=== PATIENT | female | born 1955 | race Caucasian/White ===

== ENCOUNTER 2016-11-02 14:38 | Emergency (ER) | payer OTHER ==
[~2016-11-02] VITALS: Ht 160 cm; Wt 57.3 kg
[~2016-11-02 14:38] MED LIST: AMLO-512 PO; ATEN25 PO; BUPR150SR PO; CHOL200016 PO; CYAN500 PO; DIPH25 PO; GABA-529 PO; HYDR2 PO; KDUR10 PO; MULT-71 PO; ONDA4 PO; OXYC10IR PO; PROM25 PO; RANI150T7 PO; SENN-106 PO; TIZA4TAB4 PO
[2016-11-02] MEDS ORDERED: OxyCODONE HCL/ACETAMINOPHEN 10-325 MG TABLET PO ONE (15:30)
[2016-11-02 16:51] VITALS: BP 122/71
== END 2016-11-02 16:53 | disposition home or self-care (01) ==
LOC: EMS 14:41
DX: S83.92XA Sprain of unspecified site of left knee, initial encounter (principal); E11.9 Type 2 diabetes mellitus without complications; I10 Essential (primary) hypertension; K21.9 Gastro-esophageal reflux disease without esophagitis; G89.29 Other chronic pain; F11.90 Opioid use, unspecified, uncomplicated; F13.90 Sedative, hypnotic, or anxiolytic use, unspecified, uncomplicated; Z88.6 Allergy status to analgesic agent; Z88.1 Allergy status to other antibiotic agents; Z88.2 Allergy status to sulfonamides; Z88.8 Allergy status to other drugs, medicaments and biological substances; W10.8XXA Fall (on) (from) other stairs and steps, initial encounter; Y93.89 Activity, other specified; Y92.038 Other place in apartment as the place of occurrence of the external cause; Y99.8 Other external cause status
CPT/HCPCS: 99284

== ENCOUNTER 2017-03-22 16:05 | Emergency (ER) | payer OTHER ==
[~2017-03-22] VITALS: Ht 165.1 cm; Wt 50.0 kg
[~2017-03-22 16:05] MED LIST changes: -ATEN25 PO; +ATEN25TA PO; -MULT-71 PO; +MULT1TAB70 PO
[2017-03-22] MEDS ORDERED: KETOROLAC TROMETHAMINE 30 MG/ML VIAL IM ONE (16:45)
[2017-03-22] MEDS ORDERED: MORPHINE SULFATE 4 MG/ML SYRINGE IM ONE (16:45)
[2017-03-22 16:50] LABS: BASOPHILS % (AUTO) 0.1 % (0.0-2.0); EOSINOPHILS % (AUTO) 0.3 % (1.0-6.0); HEMOGLOBIN 14.4 g/dL (12.0-16.0); LYMPHOCYTES # (AUTO) 1.2 K/uL (1.0-4.8); LYMPHOCYTES % (AUTO) 16.6 % (22.0-44.0); MEAN CORPUSCULAR HEMOGLOBIN 31.7 pg (26.0-34.0); MEAN CORPUSCULAR HGB CONC 34.4 G/dL (31.0-37.0); MEAN CORPUSCULAR VOLUME 92 fL (80-100); MONOCYTES # (AUTO) 0.8 K/uL (0.1-1.0); MONOCYTES % (AUTO) 10.7 % (2.0-9.0); NEUTROPHILS # (AUTO) 5.3 K/uL (1.8-7.7); NEUTROPHILS % (AUTO) 72.3 % (40.0-70.0); PLATELET COUNT (AUTO) 162 K/uL (150-450); RED BLOOD CELL COUNT(AUTO) 4.55 MIL/uL (4.00-5.20); RED CELL DISTRIBUTION WIDTH 14.1 % (11.5-14.5); WHITE BLOOD COUNT (AUTO) 7.3 K/uL (4.5-11.0)
[2017-03-22 16:56] LABS: APPEARANCE,URINE CLEAR (CLEAR); GLUCOSE, URINE (UA) NEGATIVE (NEGATIVE); KETONES,URINE NEGATIVE (NEGATIVE); LEUKOCYTE ESTERASE ,URINE NEGATIVE (NEGATIVE); OCCULT BLOOD,URINE LARGE (NEGATIVE); PH,URINE 7.5 (5.0-8.0); PROTEIN,URINE NEGATIVE (NEGATIVE)
[2017-03-22 17:19] LABS: SQUAMOUS EPITHELIAL CELL,UR Few /LPF (None Seen)
[2017-03-22 17:20] LABS: RBC,URINE 51-100 /HPF (0-2)
[2017-03-22 17:21] LABS: WBC,URINE 0-2 /HPF (0-5)
[2017-03-22 17:23] VITALS: BP 164/104
== END 2017-03-22 18:07 | disposition home or self-care (01) ==
LOC: EMS 16:06
DX: I86.8 Varicose veins of other specified sites (principal); R16.0 Hepatomegaly, not elsewhere classified; E11.9 Type 2 diabetes mellitus without complications; I10 Essential (primary) hypertension; F11.90 Opioid use, unspecified, uncomplicated; F13.90 Sedative, hypnotic, or anxiolytic use, unspecified, uncomplicated; Z87.442 Personal history of urinary calculi; Z88.1 Allergy status to other antibiotic agents; Z88.2 Allergy status to sulfonamides; Z88.8 Allergy status to other drugs, medicaments and biological substances
CPT/HCPCS: 36415; 74176; 81001; 85025; 96372; 99285; J1885; J2270

== ENCOUNTER 2017-04-10 04:09 | Inpatient (IN) | payer OTHER ==
[~2017-04-10] VITALS: Ht 165.1 cm; Wt 58.5 kg
[2017-04-10] MEDS ORDERED: SODIUM CHLORIDE 0.9% 1,000 ML IV ONE (04:15)
[2017-04-10] MEDS ORDERED: ONDANSETRON HCL 4 MG/2 ML VIAL IVP ONE (04:15)
[2017-04-10] MEDS ORDERED: MORPHINE SULFATE 4 MG/ML SYRINGE IVP ONE ×2 (04:15→06:00)
[2017-04-10 04:22] LABS: GLUCOSE,POINT OF CARE 172 MG/DL (70-110)
[2017-04-10 04:52] LABS: BASOPHILS % (AUTO) 0.4 % (0.0-2.0); HEMATOCRIT 44.4 % (36-46); HEMOGLOBIN 15.2 g/dL (12.0-16.0); MEAN CORPUSCULAR HEMOGLOBIN 31.4 pg (26.0-34.0); MEAN CORPUSCULAR HGB CONC 34.3 G/dL (31.0-37.0); MEAN CORPUSCULAR VOLUME 92 fL (80-100); MONOCYTES # (AUTO) 0.6 K/uL (0.1-1.0); MONOCYTES % (AUTO) 8.7 % (2.0-9.0); NEUTROPHILS % (AUTO) 74.9 % (40.0-70.0); PLATELET COUNT (AUTO) 165 K/uL (150-450); RED BLOOD CELL COUNT(AUTO) 4.85 MIL/uL (4.00-5.20); RED CELL DISTRIBUTION WIDTH 14.6 % (11.5-14.5); WHITE BLOOD COUNT (AUTO) 6.6 K/uL (4.5-11.0)
[2017-04-10 04:57] LABS: ANION GAP 10 mmol/L (8-16); CALCIUM, TOTAL 8.3 mg/dL (8.8-10.5); CARBON DIOXIDE 29 mmol/L (22-29); CHLORIDE 100 mmol/L (98-107); CREATININE 0.76 mg/dL (0.60-1.30); GLOMERULAR FILTR. RATE CALC > 60 mL/min (>60); POTASSIUM 3.3 mmol/L (3.5-5.1); SODIUM SERUM 139 mmol/L (136-145); UREA NITROGEN, BLOOD 12 mg/dL (7-18)
[2017-04-10 05:03] LABS: ALANINE AMINOTRANSFERASE 79 U/L (12-78); ALBUMIN 3.5 g/dL (3.4-5.0); ASPARTATE AMINOTRANSFERASE 143 U/L (15-37); BILIRUBIN,TOTAL 1.1 mg/dL (0.1-1.0); TOTAL PROTEIN, SERUM 9.1 g/dL (6.4-8.2)
[2017-04-10 05:06] LABS: LACTIC ACID 1.9 mmol/L (0.4-2.0)
[2017-04-10] MEDS ORDERED: 0.9% SODIUM CHLORIDE 10 ML SYRINGE IVP PRN ×2 (05:30→10:30)
[2017-04-10] MEDS ORDERED: ACETAMINOPHEN 325 MG TABLET PO PRN (05:30)
[2017-04-10] MEDS ORDERED: ONDANSETRON HCL 4 MG/2 ML VIAL IVP PRN (05:30)
[2017-04-10 07:02] VITALS: BP 153/94
[2017-04-10 07:08] LABS: GLUCOSE COMMENT 1 Juice/Food/D50 Given; GLUCOSE,POINT OF CARE 113 MG/DL (70-110)
[2017-04-10] MEDS ORDERED: ONDANSETRON HCL 4 MG TABLET PO PRN (10:30)
[2017-04-10] MEDS ORDERED: DiphenhydrAMINE HCL 25 MG CAPSULE PO PRN (10:30)
[2017-04-10] MEDS ORDERED: SENNA/DOCUSATE SODIUM 187-50 MG TABLET PO PRN (10:30)
[2017-04-10] MEDS: MORPHINE SULFATE 2 MG/ML SYRINGE IVP PRN ×3 (10:50→20:36)
[2017-04-10 11:38] VITALS: BP 157/109
[2017-04-10] MEDS: POTASSIUM CHLORIDE 10 MEQ ER TABLET PO SCH ×2 (12:04→19:51)
[2017-04-10] MEDS: PROMETHAZINE HCL 25 MG TABLET PO SCH ×2 (12:05→19:51)
[2017-04-10] MEDS: ATENOLOL 50 MG TABLET PO SCH (12:05)
[2017-04-10] MEDS: CYANOCOBALAMIN 500 MCG TABLET PO SCH (12:05)
[2017-04-10] MEDS: AmLODIPine BESYLATE 10 MG TABLET PO SCH (12:05)
[2017-04-10] MEDS: BuPROPion HCL 150 MG SR TABLET PO SCH (12:05)
[2017-04-10] MEDS: CHOLECALCIFEROL (VIT D3) 2,000 UNITS TABLET PO SCH (12:05)
[2017-04-10] MEDS: MULTIVITAMINS, THERAPEUTIC TABLET PO SCH (12:05)
[2017-04-10] MEDS: TiZANidine HCL 4 MG TABLET PO SCH ×2 (12:06→19:51)
[2017-04-10] MEDS: RANITIDINE HCL 150 MG TABLET PO SCH ×2 (12:06→19:51)
[2017-04-10 15:29] VITALS: BP 91/46
[2017-04-10] MEDS: HYDROmorphone HCL 2 MG TABLET PO SCH (19:51)
[2017-04-10 20:05] VITALS: BP 99/65
[2017-04-10 23:34] VITALS: BP 85/55
[2017-04-11] VITALS (7 sets, daily range): BP systolic 94–118; BP diastolic 50–67
[2017-04-11] MEDS: MORPHINE SULFATE 2 MG/ML SYRINGE IVP PRN ×4 (03:21→17:22)
[2017-04-11 06:47] LABS: BASOPHILS # (AUTO) 0.02 K/uL (0.00-0.20); BASOPHILS % (AUTO) 0.6 % (0.0-2.0); EOSINOPHILS # (AUTO) 0.09 K/uL (0.00-0.70); EOSINOPHILS % (AUTO) 3.06 % (1.0-6.0); HEMATOCRIT 41.4 % (36-46); HEMOGLOBIN 13.9 g/dL (12.0-16.0); LYMPHOCYTES # (AUTO) 1.1 K/uL (1.0-4.8); LYMPHOCYTES % (AUTO) 35.1 % (22.0-44.0); MEAN CORPUSCULAR HEMOGLOBIN 31.7 pg (26.0-34.0); MEAN CORPUSCULAR HGB CONC 33.5 G/dL (31.0-37.0); MEAN CORPUSCULAR VOLUME 94 fL (80-100); MONOCYTES # (AUTO) 0.3 K/uL (0.1-1.0); MONOCYTES % (AUTO) 10.2 % (2.0-9.0); NEUTROPHILS # (AUTO) 1.5 K/uL (1.8-7.7); PLATELET COUNT (AUTO) 105 K/uL (150-450); RED BLOOD CELL COUNT(AUTO) 4.38 MIL/uL (4.00-5.20); RED CELL DISTRIBUTION WIDTH 14.4 % (11.5-14.5)
[2017-04-11 07:16] LABS: ALANINE AMINOTRANSFERASE 85 U/L (12-78); ANION GAP 5 mmol/L (8-16); ASPARTATE AMINOTRANSFERASE 170 U/L (15-37); CALCIUM, TOTAL 8.5 mg/dL (8.8-10.5); CARBON DIOXIDE 32 mmol/L (22-29); CHLORIDE 100 mmol/L (98-107); CREATININE 0.83 mg/dL (0.60-1.30); GLOMERULAR FILTR. RATE CALC > 60 mL/min (>60); POTASSIUM 4.2 mmol/L (3.5-5.1); SODIUM SERUM 137 mmol/L (136-145); TOTAL PROTEIN, SERUM 7.9 g/dL (6.4-8.2); UREA NITROGEN, BLOOD 23 mg/dL (7-18)
[2017-04-11 08:17] LABS: GLUCOSE COMMENT 1 Juice/Food/D50 Given; GLUCOSE,POINT OF CARE 121 MG/DL (70-110)
[2017-04-11 08:17] LABS: GLUCOSE COMMENT 1 Juice/Food/D50 Given; GLUCOSE,POINT OF CARE 87 MG/DL (70-110)
[2017-04-11] MEDS: MULTIVITAMINS, THERAPEUTIC TABLET PO SCH (08:36)
[2017-04-11] MEDS: PROMETHAZINE HCL 25 MG TABLET PO SCH ×2 (08:36→20:26)
[2017-04-11] MEDS: POTASSIUM CHLORIDE 10 MEQ ER TABLET PO SCH ×2 (08:36→20:24)
[2017-04-11] MEDS: CHOLECALCIFEROL (VIT D3) 2,000 UNITS TABLET PO SCH (08:36)
[2017-04-11] MEDS: ATENOLOL 50 MG TABLET PO SCH (08:36)
[2017-04-11] MEDS: CYANOCOBALAMIN 500 MCG TABLET PO SCH (08:36)
[2017-04-11] MEDS: BuPROPion HCL 150 MG SR TABLET PO SCH (08:36)
[2017-04-11] MEDS: RANITIDINE HCL 150 MG TABLET PO SCH ×2 (08:36→20:25)
[2017-04-11] MEDS: TiZANidine HCL 4 MG TABLET PO SCH ×2 (08:37→20:25)
[2017-04-11] MEDS: AmLODIPine BESYLATE 10 MG TABLET PO SCH (08:43)
[2017-04-11] MEDS: HYDROmorphone HCL 2 MG TABLET PO SCH ×2 (09:00→20:24)
[2017-04-11 15:12] LABS: GLUCOSE,POINT OF CARE 93 MG/DL (70-110)
[2017-04-11 18:13] LABS: GLUCOSE,POINT OF CARE 75 MG/DL (70-110)
[2017-04-11] MEDS ORDERED: MAGNESIUM SULFATE 3 GM in DEXTROSE 5%-WATER 100 ML IV ONE (18:15)
[2017-04-11] MEDS: DOCUSATE SODIUM 250 MG CAPSULE PO SCH (20:24)
[2017-04-11] MEDS: ZOLPIDEM TARTRATE 10 MG TABLET PO SCH (20:36)
[2017-04-12] VITALS (7 sets, daily range): BP systolic 93–131; BP diastolic 47–79
[2017-04-12] MEDS: MORPHINE SULFATE 2 MG/ML SYRINGE IVP PRN ×6 (00:42→23:12)
[2017-04-12 05:44] LABS: BASOPHILS % (AUTO) 0.5 % (0.0-2.0); EOSINOPHILS % (AUTO) 2.3 % (1.0-6.0); HEMATOCRIT 38.7 % (36-46); HEMOGLOBIN 13.3 g/dL (12.0-16.0); LYMPHOCYTES # (AUTO) 1.1 K/uL (1.0-4.8); LYMPHOCYTES % (AUTO) 28.7 % (22.0-44.0); MEAN CORPUSCULAR HEMOGLOBIN 31.8 pg (26.0-34.0); MEAN CORPUSCULAR HGB CONC 34.3 G/dL (31.0-37.0); MEAN CORPUSCULAR VOLUME 93 fL (80-100); MONOCYTES # (AUTO) 0.4 K/uL (0.1-1.0); MONOCYTES % (AUTO) 11.5 % (2.0-9.0); NEUTROPHILS # (AUTO) 2.1 K/uL (1.8-7.7); PLATELET COUNT (AUTO) 126 K/uL (150-450); RED BLOOD CELL COUNT(AUTO) 4.16 MIL/uL (4.00-5.20); RED CELL DISTRIBUTION WIDTH 14.2 % (11.5-14.5); WHITE BLOOD COUNT (AUTO) 3.7 K/uL (4.5-11.0)
[2017-04-12 06:07] LABS: ANION GAP 6 mmol/L (8-16); CALCIUM, TOTAL 8.5 mg/dL (8.8-10.5); CARBON DIOXIDE 28 mmol/L (22-29); CHLORIDE 103 mmol/L (98-107); CREATININE 0.87 mg/dL (0.60-1.30); GLOMERULAR FILTR. RATE CALC > 60 mL/min (>60); POTASSIUM 4.4 mmol/L (3.5-5.1); SODIUM SERUM 137 mmol/L (136-145); UREA NITROGEN, BLOOD 26 mg/dL (7-18)
[2017-04-12 07:47] LABS: RBC MORPHOLOGY COMMENT NORMAL RBC MORPH
[2017-04-12] MEDS: BuPROPion HCL 150 MG SR TABLET PO SCH (08:15)
[2017-04-12] MEDS: CYANOCOBALAMIN 500 MCG TABLET PO SCH (08:15)
[2017-04-12] MEDS: TiZANidine HCL 4 MG TABLET PO SCH ×2 (08:15→20:27)
[2017-04-12] MEDS: RANITIDINE HCL 150 MG TABLET PO SCH ×2 (08:15→20:28)
[2017-04-12] MEDS: CHOLECALCIFEROL (VIT D3) 2,000 UNITS TABLET PO SCH (08:15)
[2017-04-12] MEDS: PROMETHAZINE HCL 25 MG TABLET PO SCH ×2 (08:15→20:28)
[2017-04-12] MEDS: MULTIVITAMINS, THERAPEUTIC TABLET PO SCH (08:16)
[2017-04-12] MEDS: POTASSIUM CHLORIDE 10 MEQ ER TABLET PO SCH ×2 (08:16→20:28)
[2017-04-12] MEDS: AmLODIPine BESYLATE 10 MG TABLET PO SCH (08:16)
[2017-04-12] MEDS: HYDROmorphone HCL 2 MG TABLET PO SCH ×2 (08:16→20:28)
[2017-04-12] MEDS: ATENOLOL 50 MG TABLET PO SCH (08:17)
[2017-04-12] MEDS: DOCUSATE SODIUM 250 MG CAPSULE PO SCH ×2 (08:17→20:28)
[2017-04-12 13:42] LABS: GLUCOSE,POINT OF CARE 152 MG/DL (70-110)
[2017-04-12] MEDS: OxyCODONE HCL 10 MG IR TABLET PO PRN (17:44)
[2017-04-12] MEDS: ZOLPIDEM TARTRATE 10 MG TABLET PO SCH (20:28)
[2017-04-12 23:52] LABS: GLUCOSE,POINT OF CARE 140 MG/DL (70-110)
[2017-04-13 03:37] VITALS: BP 139/103
[2017-04-13] MEDS: MORPHINE SULFATE 2 MG/ML SYRINGE IVP PRN ×2 (03:56→10:02)
[2017-04-13 04:04] VITALS: BP 126/63
[2017-04-13 07:22] LABS: GLUCOSE,POINT OF CARE 78 MG/DL (70-110)
[2017-04-13 07:40] VITALS: BP 132/77
[2017-04-13] MEDS: DOCUSATE SODIUM 250 MG CAPSULE PO SCH ×2 (08:21→08:29)
[2017-04-13] MEDS: RANITIDINE HCL 150 MG TABLET PO SCH (08:21)
[2017-04-13] MEDS: MULTIVITAMINS, THERAPEUTIC TABLET PO SCH (08:21)
[2017-04-13] MEDS: TiZANidine HCL 4 MG TABLET PO SCH (08:21)
[2017-04-13] MEDS: POTASSIUM CHLORIDE 10 MEQ ER TABLET PO SCH (08:22)
[2017-04-13] MEDS: AmLODIPine BESYLATE 10 MG TABLET PO SCH ×2 (08:22→08:29)
[2017-04-13] MEDS: PROMETHAZINE HCL 25 MG TABLET PO SCH (08:22)
[2017-04-13] MEDS: BuPROPion HCL 150 MG SR TABLET PO SCH (08:22)
[2017-04-13] MEDS: HYDROmorphone HCL 2 MG TABLET PO SCH (08:23)
[2017-04-13] MEDS: CHOLECALCIFEROL (VIT D3) 2,000 UNITS TABLET PO SCH (08:23)
[2017-04-13] MEDS: ATENOLOL 50 MG TABLET PO SCH (08:23)
[2017-04-13] MEDS: CYANOCOBALAMIN 500 MCG TABLET PO SCH (08:23)
[2017-04-13] MEDS: OxyCODONE HCL 10 MG IR TABLET PO PRN ×2 (09:59→14:40)
[2017-04-13 11:01] VITALS: BP 108/73
[2017-04-13 12:02] LABS: GLUCOSE,POINT OF CARE 156 MG/DL (70-110)
== END 2017-04-13 15:35 | disposition home or self-care (01) | DRG 48 ==
LOC: EMS 04:10 → 6N 05:44
PROVIDERS: ADMIT Internal Medicine; ATTEND Family Medicine
DX: E11.43 Type 2 diabetes mellitus with diabetic autonomic (poly)neuropathy (principal); F11.20 Opioid dependence, uncomplicated; I10 Essential (primary) hypertension; K31.84 Gastroparesis; G89.4 Chronic pain syndrome; M54.9 Dorsalgia, unspecified; K21.9 Gastro-esophageal reflux disease without esophagitis; F13.90 Sedative, hypnotic, or anxiolytic use, unspecified, uncomplicated; M75.100 Unspecified rotator cuff tear or rupture of unspecified shoulder, not specified as traumatic; G47.00 Insomnia, unspecified; F41.9 Anxiety disorder, unspecified; K59.03 Drug induced constipation; T40.2X5A Adverse effect of other opioids, initial encounter; M19.90 Unspecified osteoarthritis, unspecified site; E87.6 Hypokalemia; E86.0 Dehydration; Z88.1 Allergy status to other antibiotic agents; Z87.442 Personal history of urinary calculi; Z90.49 Acquired absence of other specified parts of digestive tract; Z90.710 Acquired absence of both cervix and uterus; Z96.652 Presence of left artificial knee joint; Y92.89 Other specified places as the place of occurrence of the external cause; Y93.89 Activity, other specified; Y99.8 Other external cause status; Z88.2 Allergy status to sulfonamides; Z88.8 Allergy status to other drugs, medicaments and biological substances; Z79.899 Other long term (current) drug therapy
CPT/HCPCS: 82962; 83605; 83735; 93005; 96361; 96374; 96375; 96376; 99285; G0480; J2270; J2405; J3475; J7030; J7060; Q0162

== ENCOUNTER 2018-10-09 11:11 | Emergency (ER) | payer OTHER ==
[~2018-10-09] VITALS: Ht 157.5 cm; Wt 64.1 kg
[~2018-10-09 11:11] MED LIST changes: -AMLO-512 PO; -CHOL200016 PO; +CHOL200059 PO; -GABA-529 PO
[2018-10-09] MEDS ORDERED: MORPHINE SULFATE 2 MG/ML SYRINGE IVP ONE (11:30)
[2018-10-09 11:41] LABS: EOSINOPHILS % (AUTO) 2.4 % (1.0-6.0); HEMATOCRIT 36.1 % (36-46); HEMOGLOBIN 11.8 g/dL (12.0-16.0); LYMPHOCYTES # (AUTO) 1.4 K/uL (1.0-4.8); LYMPHOCYTES % (AUTO) 30.5 % (22.0-44.0); MEAN CORPUSCULAR HEMOGLOBIN 27.3 pg (26.0-34.0); MEAN CORPUSCULAR HGB CONC 32.7 G/dL (31.0-37.0); MEAN CORPUSCULAR VOLUME 84 fL (80-100); MONOCYTES # (AUTO) 0.6 K/uL (0.1-1.0); MONOCYTES % (AUTO) 13.9 % (2.0-9.0); NEUTROPHILS # (AUTO) 2.4 K/uL (1.8-7.7); NEUTROPHILS % (AUTO) 52.2 % (40.0-70.0); PLATELET COUNT (AUTO) 180 K/uL (150-450); RED BLOOD CELL COUNT(AUTO) 4.31 MIL/uL (4.00-5.20); RED CELL DISTRIBUTION WIDTH 17.7 % (11.5-14.5)
[2018-10-09 12:00] LABS: ANION GAP 8 mmol/L (8-16); CALCIUM, TOTAL 8.9 mg/dL (8.8-10.5); CARBON DIOXIDE 29 mmol/L (22-29); CHLORIDE 105 mmol/L (98-107); CREATININE 0.91 mg/dL (0.60-1.30); GLOMERULAR FILTR. RATE CALC > 60 mL/min (>60); GLUCOSE,RANDOM 60 mg/dL (70-110); POTASSIUM 4.4 mmol/L (3.5-5.1); SODIUM SERUM 142 mmol/L (136-145); UREA NITROGEN, BLOOD 18 mg/dL (7-18)
[2018-10-09 12:05] LABS: ALANINE AMINOTRANSFERASE 40 U/L (12-78); ALBUMIN 3.4 g/dL (3.4-5.0); ALKALINE PHOSPHATASE 134 U/L (46-116); ASPARTATE AMINOTRANSFERASE 50 U/L (15-37); BILIRUBIN,TOTAL 0.4 mg/dL (0.1-1.0); TOTAL PROTEIN, SERUM 8.5 g/dL (6.4-8.2)
[2018-10-09] MEDS ORDERED: PARO20TA24 PO (12:09)
[2018-10-09] MEDS ORDERED: RANI150T7 PO (12:09)
[2018-10-09] MEDS ORDERED: QUET100T PO (12:09)
[2018-10-09] MEDS ORDERED: PRAM0.258 PO (12:09)
[2018-10-09] MEDS ORDERED: AMLO2.5T4 PO (12:09)
[2018-10-09] MEDS ORDERED: DOXE3TAB3 PO (12:09)
[2018-10-09] MEDS ORDERED: MORPHINE SULFATE 4 MG/ML SYRINGE IVP ONE (14:15)
[2018-10-09 15:20] VITALS: BP 137/64
== END 2018-10-09 15:27 | disposition home or self-care (01) ==
LOC: EMS 11:14
DX: M25.552 Pain in left hip (principal); E11.9 Type 2 diabetes mellitus without complications; I10 Essential (primary) hypertension; F32.9 Major depressive disorder, single episode, unspecified; F11.90 Opioid use, unspecified, uncomplicated; Z90.710 Acquired absence of both cervix and uterus; Z96.652 Presence of left artificial knee joint; Z79.899 Other long term (current) drug therapy; Z88.8 Allergy status to other drugs, medicaments and biological substances; Z88.1 Allergy status to other antibiotic agents; Z88.6 Allergy status to analgesic agent; Z88.2 Allergy status to sulfonamides; Z98.890 Other specified postprocedural states; W18.39XA Other fall on same level, initial encounter; Y93.89 Activity, other specified; Y92.89 Other specified places as the place of occurrence of the external cause; Y99.8 Other external cause status
CPT/HCPCS: 36415; 72192; 73503; 80053; 85025; 96374; 96376; 99284; J2270 ×2